=== PATIENT | female | born 1935 | race Caucasian/White ===

== ENCOUNTER 2019-12-13 18:15 | Inpatient (IN) ==
--- NOTE | 2019-12-13 19:12 | PROVIDER DOCUMENTATION ---
HPI-Musculoskeletal Pain/Inj - GENERAL Chief Complaint: Fall Stated Complaint: FALL Time Seen by Provider: 12/13/19 18:16 Source: patient, EMS - HX OF PRESENT ILLNESS-MUSKULOSKELTAL Nature of Presenting Problem: 84yo wf presents today via EMS states she fell outside her home today and laid on the ground several hours before her neighbor finally found her. Patient states she did not trip and fall her feet just gave way and she fell on her right side on the concrete. Patient is c/o right hip and shoulder pain that is radiating across the buttocks. Patient does have several abrasions noted to the right arm and leg. Quality of Pain: reports: sharp Severity in ED: severe Onset/Duration: 4-6 hours ago Timing: still present, getting worse Modifying Factors: improves with: analgesics (Fentanyl in route by EMS) Similar Symptoms Previously?: No Recently seen or treated by another doctor?: No - FALL INJURY Location of Pain/Injury: reports: lower extremity (right hip), upper body (right shoulder) Pain Radiation: reports: back Symptoms prior to fall:: reports: none Loss of Consciousness: no loss of consciousness Injury Associated Symptoms: reports: unable to bear weight - BACK & NECK PAIN/INJURY Back/Neck Pain Location: reports: sacrum Back/Neck Pain Radiation: reports: shoulders, Buttocks Associated Symptoms: reports: denies symptoms - TRUNK INJURY Location of Injury(s)/Pain: reports: pelvis Context / Method of Injury: reports: fall - HIP/PELVIS PAIN/INJURY Hip Pain Location: reports: hip (R), pelvis Pain Radiation: reports: back Context / Method of Injury: reports: fall Associated Symptoms: reports: weakness in legs/feet - LOWER EXTREMITY PAIN/INJURY Lower Extremities Pain: hip: right, leg: right Context / Method of Injury: reports: fell Associated Symptoms: reports: weakness in legs/feet - UPPER EXTREMITY PAIN/INJURY Extremities Pain Location: shoulder: right Context / Method of Injury: reports: fell Associated Symptoms: reports: weakness in upper ext Review of Systems - Adult - REVIEW OF SYSTEMS - ADULT Constitutional: reports: no symptoms reported Eyes: reports: no symptoms reported Ears, Nose, Mouth & Throat: reports: no symptoms reported Cardiovascular: reports: no symptoms reported Respiratory: reports: no symptoms reported Gastrointestinal: reports: no symptoms reported Genitourinary: reports: no symptoms reported Musculoskeletal: reports: see HPI, back pain Integumentary: reports: no symptoms reported Neurological: reports: no symptoms reported Psychiatric: reports: no symptoms reported Endocrine: reports: no symptoms reported Hematologic/Lymphatic: reports: no symptoms reported Allergic/Immunologic: reports: no symptoms reported All Other Systems: Reviewed and Negative Past History - Adult - PAST MEDICAL HISTORY-ADULT Review of Records: reports: Old Records Reviewed, Nursing Assessment Review, Medications Reviewed, Social history reviewed & non-contributory. Major Childhood Illnesses: reports: denies history Cardiovascular: reports: CHF, HTN Respiratory: reports: pneumonia Gastrointestinal: reports: polyps (removed) Obstetrical/Gynecological: reports: denies history Genitourinary: reports: denies history Musculoskeletal: reports: arthritis Neurological: reports: denies history Psychiatric: reports: denies history Endocrine/Immune: reports: denies history Other Conditions: reports: denies history - PRIOR SURGERIES/PROCEDURES Surgical/Procedure History: reports: hysterectomy, joint replacement (left hip) - IMMUNIZATION STATUS Childhood Immunizations: See Nurse Assessment Flu Vaccine: See Nurse Assessment - FAMILY HISTORY Family History: reviewed, not pertinent - SOCIAL HISTORY Smoking: greater than 1 pack/day Provider spent 3-5 mins advising pt. on dangers of tobacco.: Discussed manners to quit use, and f/u contacts for add'l counseling. Substance Use: denies Living Situation: alone Physical Exam-Injury Related - Physical Exam-Injury Related Initial Vital Signs Reviewed: Yes General Appearance: mild distress (from pain) Eyes: PERRL/EOMI, pink conjunctivae Head, Ears, Nose, Mouth & Throat: normocephalic/atraumatic, moist mucous membranes Neck: non-tender, full range of motion, normal inspection Respiratory: chest non-tender, lungs clear, normal breath sounds, no respiratory distress, no accessory muscle use Cardiovascular: normal peripheral pulses, regular rate, rhythm, no edema, no murmur Peripheral Pulses: radial (R): 2+, radial (L): 2+, dorsalis-pedis (R): 2+, dorsalis-pedis (L): 2+ Abdominal Exam: normal bowel sounds, non tender, soft Lymphatic: no adenopathy Extremity: no pedal edema, normal capillary refill, tenderness (right hip region, decreased ROM to right lower ext.) Integumentary: warm/dry, tenderness (right hip, right shoulder), abrasion (right elbow, right leg) Neurologic: grossly normal Psych/Mental Status: normal thought process, oriented x 3 Progress - PLAN OF CARE/RESULTS Progress/Plan/Lab Results: Vital Signs - 8 hr 12/13/19 18:41 Temperature 97.9 F Pulse Rate 63 Respiratory Rate 20 Blood Pressure 168/88 O2 Sat by Pulse Oximetry 96 Laboratory Results - last 24 hr 12/13/19 12/13/19 20:28 20:28 WBC 7.48 RBC 4.40 Hgb 12.9 Hct 39.4 MCV 89.5 MCH 29.3 MCHC 32.7 L RDW Std Deviation 16.1 H Plt Count 166 MPV 8.9 Neut % (Auto) 85.3 H Lymph % (Auto) 7.9 L [place] % (Auto) 6.6 Eos % (Auto) 0.1 Baso % (Auto) 0.1 Neut # (Auto) 6.38 Lymph # (Auto) 0.59 L [place] # (Auto) 0.49 Eos # (Auto) 0.01 Baso # (Auto) 0.01 PT 13.6 INR 1.03 Orders Category Date Time Status Ice Pack to affected area DIRECTED Care 12/13/19 20:53 Active NPO Except MEDICATIONS Diet 12/14/19 00:01 Active CHEST-1 VIEW [RAD] Stat Exams 12/13/19 19:[address] HEAD/C-SPINE W/O CONTRAST [CT] Stat Exams 12/13/19 19:[address] LUMBAR SPINE W/O CONTRAST [CT] Stat Exams 12/13/19 19:[address] PELVIS W/O CONTRAST [CT] Stat Exams 12/13/19 20:53 Ordered FEMUR MIN 2 VIEWS RIGHT [RAD] Stat Exams 12/13/19 18:56 Completed SHOULDER-RIGHT [RAD] Stat Exams 12/13/19 18:56 Completed XRAY PELVIS W/HIP 2-3VW RT [RAD] Stat Exams 12/13/19 18:56 Completed CBC WITH DIFF [HEME] Stat Lab 12/13/19 20:28 Completed COMPREHENSIVE METABOLIC PANEL [CHEM] Stat Lab 12/13/19 20:28 Received PROTIME WITH INR [COAG] Stat Lab 12/13/19 20:28 Completed Result Diagrams: 12/13/19 20:28 - XRAY 1 XRAY: Right XRAY Study: Pelvis, Hip Impression: See EMR Report (FINDINGS: There is an ununited fracture deformity of the superior aspect of the greater trochanter of the right femur. This was not present on the previous exam, but has sclerotic margins which suggest that it may be old. There is no other fracture or dislocation identified. IMPRESSION: Ununited fracture of superior aspect of the greater trochanter of the right femur. This has developed since 11/10/2015 but may be old. Electronically signed by [employer] 12/13/2019 7:42 PM) 2 XRAY Study: Chest Impression: See EMR Report (FINDINGS: Heart size appears borderline enlarged. There is a hiatal hernia. The lungs appear clear. There is no pleural effusion or pneumothorax identified. There are apparent old fracture deformities of lateral right mid and upper ribs.9 IMPRESSION: Borderline cardiomegaly. Hiatal hernia. No other evidence of acute disease. Electronically signed by [employer] 12/13/2019 7:50 PM) 3 XRAY: Right XRAY Study: Shoulder Impression: See EMR Report (FINDINGS: There are substantial degenerative changes. The humeral head is possibly high riding, which can be seen with chronic rotator cuff tear. There is no fracture or dislocation identified. IMPRESSION: No evidence of fracture or dislocation. Electronically signed by [employer] 12/13/2019 7:46 PM) 4 XRAY: Right XRAY Study: Femur (FINDINGS: There is an ununited fracture deformity at the superior aspect of the greater trochanter of the proximal femur, as seen on the right hip and pelvis exam. There is no other fracture identified. There is a total knee prosthesis. There are atherosclerotic calcifications noted. IMPRESSION: Ununited fracture deformity at superior aspect of the greater trochanter of proximal femur, as seen on the right hip and pelvis exam. No other fracture seen. Electronically signed by [employer] 12/13/2019 7:44 PM) Impression: See EMR Report - CT/MRI 1 CT Study: Lumbar Spine Impression: See EMR Report (FINDINGS: There are postsurgical changes of anterior and posterior fusion at L3-4-5. There are artifacts from metallic fusion hardware which limit detail. There are surgical laminectomies at L4 and L5. There is degenerative disease with grade 1 retrolisthesis and posterior element hypertrophy which produce moderate spinal stenosis at L2-3. The bones are possibly osteopenic. There are chronic appearing compression deformities at L1 and T12. There is no acute-appearing fracture identified. There is no acute appearing subluxation identified. IMPRESSION: Anterior and posterior surgical fusion at L3-4-5. Degenerative disease with grade 1 retrolisthesis and moderate spinal stenosis at L2-3. Possible osteopenia. Chronic compression deformities at L1 and T12. No evidence of acute fracture or acute subluxation. This exam was performed using automated exposure control, adjustment of mA or kV according to patient size, and/or use of iterative reconstruction technique. Electronically signed by Bruce [employer] 12/13/2019 8:13 PM) 2 CT Study: Cervical Spine, Head Impression: See EMR Report (FINDINGS: CT head: There is no evidence of intracranial hemorrhage, mass effect, midline shift, or hydrocephalus. There is no evidence of infarct, although acute infarcts may not be immediately visible. There is no evidence of skull fracture. There is evidence of chronic sphenoid sinusitis noted. CT cervical spine: The bones are possibly osteopenic. There is substantial multilevel degenerative disease. There is no fracture or subluxation identified. There are atherosclerotic calcifications noted at the left carotid bulb region. IMPRESSION: CT head: No visible acute intracranial abnormality. No evidence of intracranial injury. CT cervical spine: No evidence of fracture or subluxation. This exam was performed using automated e xposure control, adjustment of mA or kV according to patient size, and/or use of iterative reconstruction technique. Electronically signed by Content Raven 12/13/2019 8:00 PM) - CONSULTS/PCP/HOSPITALIST Notification #1 *Consult/PCP/Hospitalist*: Dr. Cadena Time Discussed: 20:32 Reason/Comments: hip fracture Consult Disposition: Will see in ED #2 Consult: Dr. Angel Time Discussed: 21:00 Reason/Comments: admit Consult Disposition: Will see in ED Departure - Departure Date of Disposition Decision: 12/13/19 Time of Disposition Decision: 21:01 DIAGNOSIS: Fracture of right hip Qualifiers: Encounter type: initial encounter Fracture type: closed Qualified Code(s): S72.001A - Fracture of unspecified part of neck of right femur, initial encounter for closed fracture Disposition: ADMITTED INPATIENT 09 Certified Medical Emergency: Emergent Condition: Fair Referrals and Follow-Ups: None,PCP [Primary Care Provider] - - Critical Care Note This patient required my direct & personal management of CC.: No Attestation - Physician/ ROBERTO Attestation Patient care was provided by Advanced Practice Provider:: Yes Advanced Practice Provider:: Adriana Snyder Advanced Practice Provider documentation review:: The Mid-level provider documentation, treatment plan and medical decision making was reviewed by the physician who agrees with all treatment and medical decision making by the MLP. The physician spent face to face time with patient:: No Advanced Practice Provider documentation review:: Supervising physician onsite and consulted in the evaluation and care of this patient. The physician did not have a face to face encounter with the patient.
--- NOTE | 2019-12-13 19:44 | Diag Imaging Result Doc PS360 ---
EXAM: XRAY PELVIS W/HIP 2-3VW RT - 12/13/2019 HISTORY: fall TECHNIQUE: Right hip and pelvis two views COMPARISON: 11/10/2015 FINDINGS: There is an ununited fracture deformity of the superior aspect of the greater trochanter of the right femur. This was not present on the previous exam, but has sclerotic margins which suggest that it may be old. There is no other fracture or dislocation identified. IMPRESSION: Ununited fracture of superior aspect of the greater trochanter of the right femur. This has developed since 11/10/2015 but may be old. Electronically signed by Bruce Branham 12/13/2019 7:42 PM
--- NOTE | 2019-12-13 19:47 | Diag Imaging Result Doc PS360 ---
EXAM: FEMUR MIN 2 VIEWS RIGHT - 12/13/2019 HISTORY: fall TECHNIQUE: Right femur three views COMPARISON: None. FINDINGS: There is an ununited fracture deformity at the superior aspect of the greater trochanter of the proximal femur, as seen on the right hip and pelvis exam. There is no other fracture identified. There is a total knee prosthesis. There are atherosclerotic calcifications noted. IMPRESSION: Ununited fracture deformity at superior aspect of the greater trochanter of proximal femur, as seen on the right hip and pelvis exam. No other fracture seen. Electronically signed by Bruce Branham 12/13/2019 7:44 PM
--- NOTE | 2019-12-13 19:48 | Diag Imaging Result Doc PS360 ---
EXAM: SHOULDER-RIGHT - 12/13/2019 HISTORY: fall TECHNIQUE: Right shoulder two views COMPARISON: None. FINDINGS: There are substantial degenerative changes. The humeral head is possibly high riding, which can be seen with chronic rotator cuff tear. There is no fracture or dislocation identified. IMPRESSION: No evidence of fracture or dislocation. Electronically signed by Bruce Branham 12/13/2019 7:46 PM
--- NOTE | 2019-12-13 19:52 | Diag Imaging Result Doc PS360 ---
EXAM: CHEST-1 VIEW - 12/13/2019 HISTORY: fall TECHNIQUE: AP supine chest one view COMPARISON: 12/26/2016 FINDINGS: Heart size appears borderline enlarged. There is a hiatal hernia. The lungs appear clear. There is no pleural effusion or pneumothorax identified. There are apparent old fracture deformities of lateral right mid and upper ribs.9 IMPRESSION: Borderline cardiomegaly. Hiatal hernia. No other evidence of acute disease. Electronically signed by Bruce [employer] 12/13/2019 7:50 PM
--- NOTE | 2019-12-13 20:02 | Diag Imaging Result Doc PS360 ---
EXAM: CT HEAD/C-SPINE W/O CONTRAST - 12/13/2019 HISTORY: fall TECHNIQUE: CT head/cervical spine without contrast COMPARISON: None. FINDINGS: CT head: There is no evidence of intracranial hemorrhage, mass effect, midline shift, or hydrocephalus. There is no evidence of infarct, although acute infarcts may not be immediately visible. There is no evidence of skull fracture. There is evidence of chronic sphenoid sinusitis noted. CT cervical spine: The bones are possibly osteopenic. There is substantial multilevel degenerative disease. There is no fracture or subluxation identified. There are atherosclerotic calcifications noted at the left carotid bulb region. IMPRESSION: CT head: No visible acute intracranial abnormality. No evidence of intracranial injury. CT cervical spine: No evidence of fracture or subluxation. This exam was performed using automated exposure control, adjustment of mA or kV according to patient size, and/or use of iterative reconstruction technique. Electronically signed by Bruce Branham 12/13/2019 8:00 PM
--- NOTE | 2019-12-13 20:16 | Diag Imaging Result Doc PS360 ---
EXAM: CT LUMBAR SPINE W/O CONTRAST - 12/13/2019 HISTORY: fall TECHNIQUE: CT lumbar spine without contrast COMPARISON: None. FINDINGS: There are postsurgical changes of anterior and posterior fusion at L3-4-5. There are artifacts from metallic fusion hardware which limit detail. There are surgical laminectomies at L4 and L5. There is degenerative disease with grade 1 retrolisthesis and posterior element hypertrophy which produce moderate spinal stenosis at L2-3. The bones are possibly osteopenic. There are chronic appearing compression deformities at L1 and T12. There is no acute-appearing fracture identified. There is no acute appearing subluxation identified. IMPRESSION: Anterior and posterior surgical fusion at L3-4-5. Degenerative disease with grade 1 retrolisthesis and moderate spinal stenosis at L2-3. Possible osteopenia. Chronic compression deformities at L1 and T12. No evidence of acute fracture or acute subluxation. This exam was performed using automated exposure control, adjustment of mA or kV according to patient size, and/or use of iterative reconstruction technique. Electronically signed by Bruce Branham 12/13/2019 8:13 PM
[2019-12-13 20:53] LABS: BASO# 0.01 X1000 (0.0-0.2); BASO% 0.1 % (0.0-0.8); EOS# 0.01 X1000 (0.0-0.7); EOS% 0.1 % (0.0-10.0); HEMATOCRIT 39.4 % (37.0-47.0); HEMOGLOBIN 12.9 g/dL (12.0-16.0); LYMPH# 0.59 X1000 (1.2-3.4); LYMPH% 7.9 % (20.5-51.1); MCH 29.3 PG (27-31); MCHC 32.7 g/dL (33-37); MCV 89.5 FL (81-99); MONO# 0.49 X1000 (0.11-0.59); MONO% 6.6 % (1.7-9.3); MPV 8.9 FL (7.4-10.4); NEUT# 6.38 X1000 (1.4-6.5); NEUT% 85.3 % (42.2-75.2); PLT 166 X1000 (130-400); RDW 16.1 % (11.5-14.5); WBC 7.48 X1000 (4.8-10.8)
[2019-12-13 20:56] LABS: INR 1.03; PROTIME 13.6 Seconds (11.0-16.0)
[2019-12-13 21:07] LABS: ALB/GLOB RATIO 1.3; ALBUMIN 3.8 g/dL (3.5-5.0); CALCIUM 9.6 mg/dL (8.8-10.2); CREATININE 0.9 mg/dL (0.5-0.9); POTASSIUM 4.2 mmol/L (3.5-5.1); TOTAL BILIRUBIN 0.42 mg/dL (0.20-1.00); TOTAL PROTEIN 6.8 g/dL (6.3-8.3)
--- NOTE | 2019-12-13 21:30 | Diag Imaging Result Doc PS360 ---
EXAM: CT PELVIS W/O CONTRAST - 12/13/2019 HISTORY: R hip fracture TECHNIQUE: CT bony pelvis without contrast COMPARISON: 11/10/2015 FINDINGS: There is an ununited fracture of the greater trochanter of the right femur which has developed since the prior exam. This has smoothly corticated margins and is compatible with an otherwise old fracture deformity. There is no acute fracture of the proximal right femur identified. There is no hip dislocation seen. There is an acute comminuted fracture of the right superior pubic ramus. There is an acute mildly comminuted fracture of the right inferior pubic ramus. There is no other fracture identified. The bones are possibly osteopenic. There is metallic orthopedic hardware in the proximal left femur. IMPRESSION: Old ununited fracture of superior aspect of the greater trochanter of right femur. Acute fractures of right superior and inferior pubic rami. This exam was performed using automated exposure control, adjustment of mA or kV according to patient size, and/or use of iterative reconstruction technique. Electronically signed by Bruce Branham 12/13/2019 9:28 PM
--- NOTE | 2019-12-13 21:42 | ORTHOPAEDICS CONSULTATION ---
DATE: 12/13/2019 REQUESTING PROVIDER: [facility]. REASON FOR CONSULTATION: Right hip pain. PAST MEDICAL HISTORY: 1. Hypertension. 2. DVT. 3. Hyperlipidemia. 4. GERD. 5. Osteoarthritis. 6. Low back pain with a fusion. 7. Dementia. 8. Congestive heart failure. PAST SURGICAL HISTORY: 1. Bilateral total knee arthroplasties done by Dr. Lloyd. 2. ORIF of right foot fracture. 3. Cataract surgery. 4. Left proximal humerus ORIF. 5. Closed reduction intramedullary nailing of left hip fracture. MEDICATIONS: Please see list in patient's chart for a detailed list of medications. Patient states she is not on any anticoagulation. ALLERGIES: Patient reports allergy to Celebrex. SOCIAL HISTORY: Patient lives alone in [place], [place]. She uses a walker for mobilization. She still drives and goes to the store. She smokes 1 pack of cigarettes per day. She denies any alcohol or drug use. FAMILY HISTORY: Noncontributory. REVIEW OF SYSTEMS: Ten-point review of systems was completed and negative other than what is listed in history of present illness. CHIEF COMPLAINT: Right hip pain. HISTORY OF PRESENT ILLNESS: Ms. Dupont is a 84-year-old lady who sustained a same-level fall at home earlier today. She states she tripped on her back patio, falling onto the right hip. She denies hitting her head or any loss of consciousness. She was unable to bear any weight on the hip following the fall. She was thus brought to the ER for evaluation. X-rays done in the ER demonstrated concern for acute versus chronic greater trochanteric femur fracture. Orthopedic Surgery was thus consulted. Again, the patient denies hitting her head or any loss of consciousness. She denies any pain in the right hip prior to this fall. She has no other complaints. PHYSICAL EXAMINATION: General: Ms. Dupont is a 84-year-old female who appears well nourished, well developed, in no acute distress. She is awake, alert, oriented x3. She is very polite and cooperative during examination. Vital Signs: Temperature 97.9 degrees Fahrenheit, heart rate 63, respiratory rate 20, blood pressure 168/88, O2 saturation 96% on room air. HEENT: Normocephalic, atraumatic. Respiratory: Nonlabored breathing. Cardiovascular: Regular rate and rhythm. Extremities: Examination of right lower extremity shows skin intact around the right hip. There is no bruising or swelling of the hip. She does have a superficial abrasion over the anterior lateral aspect of her knee. She is mildly tender to palpation over the lateral aspect of her hip. She has significant pain in her groin with log roll of the hip. Nontender along her distal femur, knee, leg, ankle and foot. Motor is intact to EHL, tibialis anterior, gastroc- soleus complex. Sensation intact to light touch L3-S1. Dorsalis pedis pulse palpable and equal bilaterally. Examination of the left lower extremity shows skin intact with well-healed surgical incisions from prior nailing of her hip fracture and left total knee replacement. Thigh and calf soft and compressible. No pain with log roll. Negative Stinchfield test. Neurovascularly intact. Examination of bilateral upper extremities shows skin intact on the left and superficial abrasions over the right elbow and arm. No crepitus or deformity. Neurovascularly intact to bilateral upper extremities. IMAGING: AP pelvis and lateral of the right hip were reviewed, demonstrating concern for a femoral neck fracture on the AP of the pelvis. She does also have a chronic-appearing greater trochanteric femur fracture. She has hardware in her left hip from prior closed reduction intramedullary nailing. AP and lateral of the right femur were also obtained and reviewed, demonstrating again a chronic greater trochanteric femur fracture. She did not have any obvious femoral neck fracture on the femur films. Two views of the right shoulder were also obtained and reviewed, demonstrating no acute fracture or dislocation. She appears to have a high-riding humeral head with chronic rotator cuff arthropathy, likely. CT scan of the spine shows prior posterior cervical fusion at L3 to L5. She has grade 1 retrolisthesis of L2 on L3, likely chronic in nature. ASSESSMENT: This is an 84-year-old female with right hip pain concerning for a femoral neck fracture as well as a chronic-appearing greater trochanteric femur fracture. PLAN: 1. Long discussion was had with patient regarding diagnosis and treatment options. Given her clinical exam and AP pelvis x-ray, I am concerned for an acute femoral acute femoral neck fracture. She also has evidence of what appears to be a chronic greater trochanteric femur fracture. She denies any prior history of right hip injury; however, she is rather demented on examination. We will plan on getting a CT scan of the pelvis to further evaluate her right femoral neck. If in fact the femoral neck is intact and it is a chronic-appearing greater trochanteric femur fracture, I think we should try to treat this conservatively; however, if she does have an acute femoral neck fracture, this will likely be something that will require screws versus a partial hip replacement. I want to keep her nonweightbearing on the right lower extremity until CT scan is done. Further recommendations will follow the CT scan. 2. The patient to be admitted to the hospitalist. Appreciate recommendations. She will need medical management and clearance for possible surgery if indicated. 3. We will keep her n.p.o. at midnight tonight for a possible surgery tomorrow, pending results of the CT scan. 4. Recommend Lovenox for DVT prophylaxis. Hold the a.m. dose until surgical plans are made. Thank you for the consultation.
--- NOTE | 2019-12-13 21:55 | HISTORY AND PHYSICAL ---
PRIMARY CARE PROVIDER: Unknown. CHIEF COMPLAINT: Fall, right hip pain. HISTORY OF PRESENTING ILLNESS: An 84-year-old elderly female with a history of hypertension, DVT, hyperlipidemia presented to emergency department after she had a fall. The patient states that she was at the end of her driveway and somehow she must have slipped, and she landed on her right hip region. She developed moderate amount of pain. She was brought to the emergency department. She had imaging done, which did show a right femur fracture. Her case was discussed with Orthopedics who recommended admission for further treatment. On examination, denied any headache, fever, chills, chest pain, shortness of breath or any weight changes, but complained of right hip pain. The patient is a poor historian. PAST MEDICAL HISTORY: Includes hypertension, DVT, hyperlipidemia. PAST SURGICAL HISTORY: Right foot ORIF, left arm surgery, left shoulder surgery, right total knee, left total knee arthroscopy. ALLERGIES: Celebrex. CURRENT MEDICATIONS: Lasix 40 mg p.o. daily, [place] 5/325 one p.o. q.6 hours, lisinopril 22.5 mg p.o. daily, rosuvastatin 40 mg p.o. at bedtime, sertraline 100 mg p.o. daily, spironolactone 25 mg p.o. daily. SOCIAL HISTORY: 60+ pack year history of smoking. She denies any history of alcohol or illicit drug use. FAMILY HISTORY: No history of coronary disease. REVIEW OF SYSTEMS: Fourteen-point review of systems is as in HPI. Other systems negative. PHYSICAL EXAMINATION: GENERAL: Cooperative, friendly female. She is resting more comfortably now. VITAL SIGNS: Temperature 97.9 degrees, pulse 63, respirations 20, blood pressure 168/88. HEENT: Extraocular movements intact. PERRLA. NECK: No masses. CHEST: Clear to auscultation. CARDIOVASCULAR: Regular rate and rhythm. ABDOMEN: Soft. Positive bowel sounds. EXTREMITIES: Right hip region tenderness. NEUROLOGICAL: Awake, alert, oriented x2. GENITOURINARY: No bladder distention. SKIN: Warm. LABORATORIES AND STUDIES: WBC 7.48, hemoglobin 12.9, hematocrit 39.4, platelets 166,000, sodium 139, potassium 4.2, chloride 105, CO2 is 23, BUN is 14, creatinine 0.9, glucose is 111. Hip/pelvic x-ray shows fracture of the superior aspect of the greater trochanter of the right femur. ASSESSMENT: This is an 84-year-old female with a history of hypertension and hyperlipidemia who had presented to emergency department after she had a fall at the end of her driveway. She was brought to the emergency department. She had imaging done, which did show a right femur fracture. The case was discussed with Orthopedics who recommended admission for further management. ASSESSMENT: 1. Status post mechanical fall. 2. Right femur fracture. 3. Hypertension. 4. Hyperlipidemia. PLAN: 1. We will admit patient to medical-surgical floor. 2. We will keep patient n.p.o. and give her adequate pain control. 3. Orthopedics was already consulted. 4. We will monitor blood pressure closely. 5. We will start deep venous thrombosis prophylaxis after she has surgery. 6. We will continue to follow and reassess and make further recommendations based on her clinical course. cc: Murray Angel MD
[2019-12-13 22:23] LABS: URINE SOURCE CATH
[2019-12-13 22:27] LABS: BILIRUBIN URINE NEGATIVE (NEGATIVE); BLOOD URINE NEGATIVE (NEGATIVE); CLARITY CLEAR (CLEAR); COLOR YELLOW; GLUCOSE URINE NEGATIVE (NEGATIVE); KETONE URINE 15 mg/dL (NEGATIVE); LEUKOCYTES URINE NEGATIVE (NEGATIVE); NITRITE URINE NEGATIVE (NEGATIVE); PH URINE 5.5; PROTEIN URINE NEGATIVE (NEGATIVE); SP GRAVITY URINE 1.025; UROBILINOGEN URINE 0.2 EU/dL (0.2-1.0)
[2019-12-13 22:45] LABS: URINE BACTERIA 1+ /HFP; URINE CAST NONE SEEN /LPF; URINE CRYSTAL NONE SEEN /HPF; URINE EPITHELIAL CELLS <10 /HPF (<10); URINE RBC <10 /HPF (<10); URINE WBC <10 /HPF (<10); URINE YEAST PRESENT /HPF
[2019-12-13] MEDS ORDERED: ZOFRAN IV PRN (22:47)
[2019-12-13] MEDS ORDERED: TYLENOL PO PRN (22:47)
[2019-12-13] MEDS: MORPHINE IV PRN (23:45)
[2019-12-14] MEDS: CRESTOR PO SCH ×2 (03:28→22:01)
[2019-12-14 07:13] LABS: HEMATOCRIT 37.5 % (37.0-47.0); HEMOGLOBIN 12.1 g/dL (12.0-16.0); MCH 29.2 PG (27-31); MCHC 32.3 g/dL (33-37); MCV 90.6 FL (81-99); MPV 9.4 FL (7.4-10.4); RBC 4.14 XMIL (4.2-5.4); RDW 16.2 % (11.5-14.5); WBC 4.96 X1000 (4.8-10.8)
[2019-12-14 07:29] LABS: AGAP 12; BUN 15 mg/dL (8-22); CALCIUM 9.2 mg/dL (8.8-10.2); CHLORIDE 103 mmol/L (98-107); COSMO 279; CREATININE 0.8 mg/dL (0.5-0.9); ESTIMATED GFR > 60; GLUCOSE 106 mg/dL (70-104); POTASSIUM 4.1 mmol/L (3.5-5.1); SODIUM 139 mmol/L (136-145); TCO2 24 mmol/L (25-35)
--- NOTE | 2019-12-14 08:41 | ORTHOPAEDICS PROGRESS NOTE ---
DATE: 12/14/2019 SUBJECTIVE: No acute events overnight. Patient still reports pain in her right hemipelvis and groin. She has been n.p.o. since midnight. She has no other complaints. OBJECTIVE: Vital Signs: Afebrile. Vital signs stable. Hematocrit is 38, white count 5. Extremities: Examination of right lower extremity shows skin intact. She has tenderness to palpation over anterior hemipelvis. No pain with log roll of the hip. No pain with axial compression of the right lower extremity from the heel up into her pelvis. She is nontender posteriorly around her sacrum. She does have some mild tenderness over the lateral aspect of her hip. Thigh and calf soft and compressible. No ecchymosis or swelling around the hip or groin. Neurovascularly intact. IMAGING: CT scan of the pelvis was obtained and reviewed, demonstrating acute right superior and inferior pubic rami fractures. No obvious sacral fracture. No signs of femoral neck or femoral head fracture. She does have a chronic-appearing fracture of her greater trochanter that has smooth edges and is fully corticated, indicating this to be a chronic injury. ASSESSMENT: This is an 84-year-old female with right superior and inferior pubic rami fractures. PLAN: 1. Patient will be weightbearing as tolerated, right lower extremity. Physical therapy was consulted to work on mobilization and gait training with a walker. The fracture line does not appear to violate the femoral head or neck. She does have a chronic- appearing greater trochanteric femur fracture which can be managed nonoperatively. No orthopedic surgical intervention planned at this time. 2. The patient was given a heart healthy diet. 3. Lovenox DVT prophylaxis. 4. Ice to right lower extremity as needed for pain. 5. Okay to discontinue Perez catheter from an Orthopedic standpoint. 6. Disposition: Per primary team. Will see how she mobilizes with physical therapy. I think there is a good chance she may need placement in a assisted or inpatient rehab facility as she lives at home alone, and will likely have some trouble with mobilization due to this injury. 7. Further recommendations to follow after physical therapy evaluates the patient.
[2019-12-14] MEDS: ZOLOFT PO SCH (11:07)
[2019-12-14] MEDS: ALDACTONE PO SCH (11:07)
[2019-12-14] MEDS: PRINIVIL PO SCH (11:07)
--- NOTE | 2019-12-14 12:35 | PROGRESS NOTE ---
DATE: 12/14/2019 Ms. Dupont presented after a fall and right hip pain. An 84-year-old with a history of hypertension, DVT, hyperlipidemia. Presented to the emergency department after she had a fall. She states that she was at the end of her driveway and somehow, she slipped and landed on her right side. Developed a moderate amount of pain. Brought to the emergency department. Imaging done showed a right femur fracture. Her case was discussed with orthopedics and admitted. She does complain of pain this morning. PAST MEDICAL HISTORY: Includes hypertension, DVT, and hyperlipidemia. PAST SURGICAL HISTORY: Right foot open reduction and internal fixation, left arm surgery, left shoulder surgery, right total knee, left total knee arthroplasty. PHYSICAL EXAMINATION: Today, awake and alert. She does complain of pain. Temperature 98.8 degrees, pulse 67, respirations 17, blood pressure 107/59. Pupils are equal and round. Lungs are clear in all lung luther. Cardiovascular Examination: Regular rhythm and rate without murmur or S3. Abdomen is soft. Skin is warm and dry. Urine output is 840 mL. ASSESSMENT AND PLAN: Long discussion with orthopedic regarding diagnosis, treatment options. Given her clinical exam, AP pelvis x-ray, concerned about acute femoral and acute femoral neck fracture. She also has evidence of what appears to be chronic greater trochanteric femur fracture. Denies any prior history of right hip surgery or injury. She had some dementia on the orthopedist's exam and so got a CT scan of the pelvis and wanted to try and treat this conservatively. The CT of the head, no visible intracranial abnormality. No evidence of intracranial injury. Shoulder x-ray, no evidence of fracture or dislocation. Hip and pelvic x- ray, ununited fracture, superior aspect of the right femur and this has developed since 11/10/2015 but also could be old. Femoral x-ray, ununited fracture deformity at the superior aspect of the greater trochanter of the proximal femur seen on the right hip. No other fractures identified on that. CT of the pelvis, old ununited fracture of the superior aspect of the greater trochanter of the right femur. Acute fracture of the right superior and inferior pubic rami. ORDERS: Today, she is on Crestor 40 mg at bedtime, Lovenox 40 mg subcutaneous q.24 hours, Prinivil 2.5 mg a day, Zoloft 100 mg daily, and Aldactone 25 mg daily. REVIEW OF LABS: This morning, white count was 4960, hematocrit was 37, platelet count 164,000. Chemistry: Sodium 139, potassium 4.1, chloride 103, BUN 15, creatinine 0.8, calcium is 9.2. cc: Barber Dcikson MD
[2019-12-14] MEDS: LOVENOX SUBQ SCH (14:00)
[2019-12-14] MEDS: MORPHINE IV PRN (18:08)
[2019-12-15] MEDS: ALDACTONE PO SCH (08:40)
[2019-12-15] MEDS: PRINIVIL PO SCH (08:40)
[2019-12-15] MEDS: ZOLOFT PO SCH (08:41)
[2019-12-15] MEDS: MORPHINE IV PRN ×2 (08:41→12:37)
[2019-12-15] MEDS ORDERED: CALMOSEPTINE OINTMENT TOP PRN (09:31)
--- NOTE | 2019-12-15 10:28 | PROGRESS NOTE ---
DATE: 12/15/2019 SUBJECTIVE: Ms. Dupont is in lot of misery. She just got through physical therapy and of course is in a lot of pain. OBJECTIVE: Vital Signs: She remains afebrile, temperature 98.6 degrees, pulse 59, respirations 20, blood pressure 120/71. HEENT: Pupils are equal and round. Lungs: Clear in all lung luther. Cardiovascular: Regular rhythm and rate without murmur or S3. Abdomen: Soft. Skin: Warm and dry. Urine Output: 1150 mL. ASSESSMENT AND PLAN: 1. Patient with right superior and inferior pubic rami fractures. The patient will be weightbearing as tolerated to the right lower extremity. Physical therapy is working with her. She is still in a good deal of pain. She has a chronic-appearing greater trochanteric femur fracture, which can be managed nonoperatively. No orthopedic surgical intervention planned at this time. 2. Continue to encourage oral intake. 3. Nutrition is good at this point. 4. He is on Lovenox for deep venous thrombosis prophylaxis. 5. We are going to apply ice to the right extremity as needed for pain. 6. Continue Perez catheter at this point. 7. She may need to have placement for long term facility when she leaves here, and we will get social service to help us with that. 8. Review of her orders: Continue her current medication. cc: Barber Dickson MD
[2019-12-15] MEDS: LOVENOX SUBQ SCH (12:38)
--- NOTE | 2019-12-15 17:29 | ORTHOPAEDICS PROGRESS NOTE ---
DATE: 12/15/2019 SUBJECTIVE: No acute events overnight. Patient has gotten up with physical therapy and took a couple of steps around the room today. She still reports some pain with weightbearing in the right hip and pelvis. She denies any pain when she is lying in bed. She is tolerating a diet. She states she wants to go home with home health. OBJECTIVE: Vital Signs: Afebrile. Vital signs are stable. Lab: Hematocrit is 38. Extremities: Examination of right lower extremity shows a superficial abrasion on the lateral aspect of the knee. Thigh and calf are soft and compressible. Tender to palpation over left anterior hemipelvis. No pain with log roll of the hip. No pain with short arc range of motion of her hip. Neurovascularly intact. ASSESSMENT: This is an 84-year-old female with right superior and inferior pubic rami fractures. PLAN: 1. Patient can continue to be weightbearing as tolerated, right lower extremity. Physical therapy to mobilize and work on gait training. 2. Lovenox for deep DVT prophylaxis. She will likely need four to six weeks of chemical anticoagulation due to the fact she has a pelvic fracture and will be less mobile over that time. 3. Appreciate hospitalist recommendations. 4. Disposition per primary team. Patient will likely benefit from either inpatient rehab versus home with home health physical therapy. I think if she went home, she will need close to 24- hour care to ensure she does not have any additional falls. She will follow up with me in clinic in two weeks with repeat x-rays of the right hip.
[2019-12-15] MEDS: CRESTOR PO SCH (22:47)
[2019-12-16] MEDS: ZOLOFT PO SCH (09:17)
[2019-12-16] MEDS: PRINIVIL PO SCH (09:18)
[2019-12-16] MEDS: ALDACTONE PO SCH (09:19)
[2019-12-16] MEDS: MORPHINE IV PRN ×3 (09:20→20:56)
--- NOTE | 2019-12-16 09:31 | PROGRESS NOTE ---
DATE: 12/16/2019 SUBJECTIVE: Ms Dupont feels a little better. She did get some rest last night. Still a lot of pain with any movement in her pelvis and lower back. OBJECTIVE: Vital Signs: Temperature 98.6 degrees, pulse 54, respirations 21, blood pressure 130/62. Eyes: Pupils are equal and round. Lungs: Clear in all lung luther. Cardiovascular exam: Regular rhythm and rate without murmur or S3. Abdomen: Soft. Skin: Skin is warm and dry. : Urine output 1100 mL. ASSESSMENT: 1. Right superior and inferior pubic rami fractures. The patient continued to do weightbearing as tolerated. Continue physical therapy. A good deal of pain. 2. Encourage oral intake. 3. Nutrition is good at this point. 4. Continue Lovenox for deep venous thrombosis prophylaxis. 5. Continue Perez catheter at this time. No surgical intervention planned. PLAN: She is on Crestor 40 mg at bedtime, Tylenol 650 mg p.o. q. 6 hours p.r.n., Prinivil 2.5 mg a day, Zoloft 100 mg daily, spironolactone 25 mg a day. LAB: Reviewed from the , hematocrit is stable at 37. Electrolytes look good. DISPOSITION: We are going to need to probably arrange for physical therapy, so we will get Social Service involved to see what our options are. cc: Barber Dickson MD
[2019-12-16] MEDS: LOVENOX SUBQ SCH (12:21)
[2019-12-16] MEDS: CRESTOR PO SCH (20:56)
[2019-12-17] MEDS: MORPHINE IV PRN (07:50)
[2019-12-17] MEDS: PRINIVIL PO SCH (08:10)
[2019-12-17] MEDS: ALDACTONE PO SCH (08:11)
[2019-12-17] MEDS: ZOLOFT PO SCH (08:11)
--- NOTE | 2019-12-17 08:19 | PROGRESS NOTE ---
DATE: 12/17/2019 SUBJECTIVE: Ms. Dupont was resting, sleeping comfortably, easy to arouse. She has remained afebrile. OBJECTIVE: Temperature 98.3 degrees, pulse 65, respirations 18, blood pressure 123/68. Pupils are equal and round. No distended neck veins. Lungs are clear in all lung luther. Cardiovascular Examination: Regular rhythm and rate without murmur or S3. Urine output was 800 mL. ASSESSMENT AND PLAN: 1. Right superior and inferior pubic rami fractures. Continue to do weightbearing as tolerated. Continue physical therapy. She has finally got some rest. 2. Encourage oral intake, which I think she is doing well. 3. Continue Lovenox for deep venous thrombosis prophylaxis. Continue her Perez catheter. REVIEW OF HER ORDERS: I do not see any change. I will have social service help us as far as deciding about discharge planning. cc: Barber Dickson MD
[2019-12-17] MEDS: LOVENOX SUBQ SCH (12:38)
[2019-12-17] MEDS: CRESTOR PO SCH (20:28)
[2019-12-18] MEDS: PRINIVIL PO SCH (08:42)
[2019-12-18] MEDS: ALDACTONE PO SCH (08:42)
[2019-12-18] MEDS: ZOLOFT PO SCH (08:42)
--- NOTE | 2019-12-18 11:37 | ORTHOPAEDICS PROGRESS NOTE ---
DATE: 12/18/2019 SUBJECTIVE: No acute events overnight. The patient is doing well. She still reports some pain in her right groin. She is tolerating a diet. She has gotten up to the bedside and has stood up and taken a couple steps with therapy; however, has not yet walked in the hallways. OBJECTIVE: Afebrile. Vital signs stable. Extremities: Examination of the left lower extremity shows skin intact. Minimal pain with hip flexion, extension, internal and external rotation. No pain with log roll of the hip. She is tender to palpation anteriorly over the right hemipelvis. Nontender posteriorly around her sacrum. Thigh and calf soft and compressible. Neurovascularly intact. 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 PLAN: 1. Patient can continue to be weightbearing as tolerated to the right lower extremity. Physical therapy to work on gait training and mobilization. 2. Lovenox, DVT prophylaxis. Patient will likely need 4 to 6 weeks of anticoagulation, pending her mobilization status. 3. Appreciate hospitalist's recommendations. 4. Disposition per primary team. Patient will likely benefit from a [facility] facility or inpatient rehab to work on gait training and mobilization as she does live alone. I will plan on seeing her in clinic in 2 weeks with repeat x-rays of the hip.
[2019-12-18] MEDS: LOVENOX SUBQ SCH (11:52)
--- NOTE | 2019-12-18 12:04 | PROGRESS NOTE ---
DATE: 12/18/2019 SUBJECTIVE: Ms. Dupont is better. She is still uncomfortable especially with any movement, but she did get some rest, and is able to sleep and get comfortable. OBJECTIVE: Vital Signs: Temperature 97.9 degrees, pulse 53, respirations 16, and blood pressure 142/76. HEENT: Pupils are equal and round. Lungs: Clear in all lung luther. Cardiovascular: Regular rhythm and rate without murmur or S3. Abdomen: Soft. Skin: Warm and dry. ASSESSMENT AND PLAN: 1. Right superior and inferior rami fractures. Continue weightbearing and physical therapy looking for rehab possibilities. 2. Encourage oral intake. Her nutrition is good. 3. She is on Lovenox for deep venous thrombosis prophylaxis. 4. She is on her Zoloft 100 mg a day, which she took at home. 5. Blood pressure appears well controlled. 6. Review of her labs are unremarkable. 7. She still has a good deal of pain with trying to sit and transfer weight, but that seems to be improving. Of course, she wants to go home, but we will see how she progresses. Phys Asst involved. cc: Barber Dickson MD
[2019-12-18] MEDS: CRESTOR PO SCH (23:32)
--- NOTE | 2019-12-19 06:27 | Diag Imaging Result Doc PS360 ---
CT PELVIS W/O CONTRAST - 12/19/2019 INDICATION: patient fall COMPARISON: 12/13/2019 FINDINGS: There are stable acute fractures of the right superior and inferior pubic rami. These are slightly comminuted and not really displaced. There is a grossly stable small pelvic sidewall hematoma on the right. This does partly compressed urinary bladder. This measures about 3.8 x 1.8 cm. No new fractures. IMPRESSION: Stable recent fractures of the right pubic rami. Essentially stable small pelvic sidewall hematoma on the right side associated with the ramus fractures. This partly compresses on the urinary bladder. This exam was performed using automated exposure control, adjustment of mA or kV according to patient size, and/or use of iterative reconstruction technique Electronically signed by Darron Baez 12/19/2019 6:25 AM
[2019-12-19] MEDS: PRINIVIL PO SCH (08:53)
[2019-12-19] MEDS: ALDACTONE PO SCH (08:53)
[2019-12-19] MEDS: ZOLOFT PO SCH (08:53)
[2019-12-19 11:25] VITALS: BP 144/93
--- NOTE | 2019-12-19 12:02 | DISCHARGE SUMMARY ---
ADMISSION DATE: 12/13/2019 DISCHARGE DATE: DISCHARGE DIAGNOSES: 1. 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 2. Hypertension. 3. History of deep venous thrombosis. 4. Hyperlipidemia. 5. Generalized weakness. PROCEDURES PERFORMED: 1. Femur x-ray dated 12/13/2019. Impression: Ununited fracture deformity at superior aspect of the greater trochanter off proximal femur. 2. Hip and pelvis x-ray dated 12/13/2019. Ununited fracture of superior aspect of the greater trochanter of the right femur. 3. Head and cervical spine CT scan dated 12/13/2019. Impression: No visible acute intracranial abnormality, no evidence of fracture or subluxation. 4. Lumbar spine CT scan dated 12/13/2019. Impression: Anterior and posterior surgical fusion at L3, L4, and L5. 5. Chest x-ray dated 12/13/2019. Impression: Borderline cardiomegaly, hiatal hernia and no other evidence of acute disease. 6. Pelvis CT scan dated 12/13/2019. Impression: Old ununited fracture of superior aspect of the greater trochanter of the right femur. Acute fracture of right superior and inferior pubic rami. 7. Pelvis CT scan dated 12/19/2019. Impression: Stable recent fractures of the right pubic rami, essentially stable. Small pelvic sidewall hematoma on the right side associated with the ramus fractures, these partly compress on the urinary bladder. CONSULTATIONS: Orthopedic Surgery, Dr. Cadena. HOSPITAL COURSE: An 84-year-old female, past medical history of hypertension, DVT, hyperlipidemia, presented to the emergency department after she had a fall. As per the patient, she was at the end of her driveway and somehow she must have slipped and she landed on her right hip region. She was admitted on 12/13/2019. She developed a moderate amount of pain. She was brought to the emergency department where she had some images done, which showed a right old trochanter fracture and also showed a superior and inferior pubic rami fracture, which is new. The patient was evaluated by Orthopedic Surgery, who basically managed this patient medically. No surgical intervention was planned. She spent a few days with pain medication and also we asked Physical Therapy and Occupational Therapy to evaluate this patient. The patient will be discharged to a rehab center. It has been suggested to use anticoagulation for at least 4 to 6 weeks because of her mobilization status. She seems to be stable. She is answering all my questions. The patient can continue to be weightbearing as tolerated to the right lower extremity. Again this patient will be discharged to a rehab center. She seems to be stable. She is tolerating p.o. and having bowel movements. PHYSICAL EXAMINATION: Vital Signs: Temperature 98.4 degrees, pulse 68, respiratory rate 18, blood pressure 144/93, oxygen saturation 98 on room air. HEENT: Head normocephalic. No trauma. PERRLA. Neck: Supple. No JVD. No masses. Central trachea. Chest: Clear to auscultation. Abdomen: Soft, nontender, nondistended. No hepatosplenomegaly. Extremities: No edema, no clubbing, no cyanosis. Pain to palpation at the level of the right gluteal area and mobilization to the right hip. Neurologic: Awake and alert. She is following commands. LABORATORY DATA: No lab work done today. Laboratory from 12/14/2019: WBC 4.9, hemoglobin 12.1, hematocrit 37.5, platelets 164,000. Sodium 139, potassium 4.1, chloride 103, bicarbonate 24, BUN 15, creatinine 0.8, glucose 106, calcium 9.2. DISCHARGE MEDICATIONS: 1. Acetaminophen 650 mg p.o. q.6 hours as needed. 2. Lasix 40 mg p.o. daily. 3. [place] 5 one tablet p.o. q.6 hours as needed. 4. Lisinopril 2.5 mg p.o. daily. 5. Xarelto 10 mg p.o. daily. 6. Rosuvastatin 1 tablet p.o. at bedtime 40 mg. 7. Zoloft 100 mg p.o. daily. 8. Spironolactone 25 mg p.o. daily. Again this patient will be discharged to a rehab center. She will follow up with Dr. Cadena in 2 to 3 weeks and also follow up with her primary care doctor in 3 weeks. This has been explained to the patient and she agreed to proceed. Time discharging this patient 32 minutes. cc: Sea Barker MD
[2019-12-19] MEDS: LOVENOX SUBQ SCH (13:30)
== END 2019-12-19 13:58 | DRG 536 ==
LOC: ED 18:15 → 4N 22:11 → SUATTDRO 22:11
PROVIDERS: ATTEND Internal Medicine